=== PATIENT | female | born 1960 ===

== ENCOUNTER 2025-06-05 08:55 | Outpatient (CLI) | payer MEDICARE | END 2025-06-05 08:56 | disposition home or self-care (01) | LOC: CSHMAMMO 08:55 | PROVIDERS: ATTEND Physician Assistant | DX: Z12.31 Encounter for screening mammogram for malignant neoplasm of breast (principal); Z80.3 Family history of malignant neoplasm of breast | CPT/HCPCS: 77063; 77067 ==